=== PATIENT | male | born 1995 ===

== ENCOUNTER 2017-10-13 06:10 | Inpatient (IN) | payer OTHER ==
[2017-10-13] MEDS ORDERED: Iohexol 240 (50 ml) PO ONE (06:33)
[2017-10-13] MEDS ORDERED: Sodium Chloride 0.9% 1,000 ML IV STA (06:33)
--- NOTE | 2017-10-13 06:36 | ED PDOC ---
HPI: Abdomen Time Seen by Provider: 10/13/17 06:15 Chief Complaint (Nursing): Abdominal Pain Chief Complaint (Provider): Abdominal Pain History Per: Patient History/Exam Limitations: no limitations Onset/Duration Of Symptoms: Hrs (4.5) Additional Complaint(s): 22 y/o male with no past medical history presents to the ED complaining of abdominal pain that woke him up 4.5 hours ago. Patient describes the pain as periumbilical with no associated fever, nausea, vomiting, or diarrhea. He states that he has had a poor appetite for the past 2 days. PMD: None Provided Past Medical History Reviewed: Historical Data, Nursing Documentation, Vital Signs Vital Signs: Last Vital Signs Temp 98.7 F 10/14/17 08:02 Pulse 62 10/14/17 08:02 Resp 20 10/14/17 08:02 BP 118/72 10/14/17 08:02 Pulse Ox 98 10/16/17 04:21 - Medical History PMH: No Chronic Diseases - Surgical History Surgical History: No Surg Hx - Family History Family History: States: No Known Family Hx - Social History Current smoker - smoking cessation education provided: No Ex-Smoker (has not smoked in the last 12 months): No Alcohol: None Drugs: Cannabis (recently stopped) - Home Medications Home Medications: Ambulatory Orders Medication Instructions Recorded Ciprofloxacin [Cipro] 500 mg PO BID #14 tab 10/14/17 metroNIDAZOLE [Flagyl] 500 mg PO TID #21 tab 10/14/17 - Allergies Allergies/Adverse Reactions: Allergies Allergy/AdvReac Type Severity Reaction Status Date / Time No Known Allergies Allergy Verified 10/13/17 06:15 Review of Systems ROS Statement: Except As Marked, All Systems Reviewed And Found Negative Constitutional: Negative for: Fever Gastrointestinal: Positive for: Abdominal Pain (periumbilical). Negative for: Nausea, Vomiting, Diarrhea Physical Exam - Reviewed Nursing Documentation Reviewed: Yes Vital Signs Reviewed: Yes - Physical Exam Appears: Positive for: Non-toxic, No Acute Distress Head Exam: Positive for: ATRAUMATIC, NORMAL INSPECTION, NORMOCEPHALIC Skin: Positive for: Normal Color, Warm, Dry Eye Exam: Positive for: Normal appearance, EOMI, PERRL. Negative for: Nystagmus ENT: Positive for: Normal ENT Inspection Neck: Positive for: Normal, Painless ROM, Supple Cardiovascular/Chest: Positive for: Regular Rate, Rhythm. Negative for: Murmur Respiratory: Positive for: Normal Breath Sounds. Negative for: Respiratory Distress Gastrointestinal/Abdominal: Positive for: Bowel Sounds, Soft, Tenderness ( periumbilical and Right lower quadrant). Negative for: Guarding, Rebound Back: Positive for: Normal Inspection Extremity: Positive for: Normal ROM. Negative for: Pedal Edema, Deformity Neurologic/Psych: Positive for: Alert, Oriented. Negative for: Motor/Sensory Deficits - Laboratory Results Result Diagrams: 10/14/17 09:15 10/13/17 07:53 - ECG O2 Sat by Pulse Oximetry: 98 (RA) Pulse Ox Interpretation: Normal Medical Decision Making Medical Decision Making: Time: 6:16 Initial Impression: 22 y/o male with periumbilical and right lower quadrant pain Initial Plan: --CMP --Lipase --ED Urine dipstick --CBC --Urinalysis --CT Abdomen Pelvis Time: 7:00 --Patient signed out by me to Dr. Marybeth Nevarez MD pending CT. Scribe Attestation: Documented by Stephen Deal, acting as a scribe for Kali Posada MD Provider Scribe Attestation: All medical record entries made by the Scribe were at my direction and personally dictated by me. I have reviewed the chart and agree that the record accurately reflects my personal performance of the history, physical exam, medical decision making, and the department course for this patient. I have also personally directed, reviewed, and agree with the discharge instructions and disposition. Disposition - Clinical Impression Clinical Impression: Abdominal pain - Patient ED Disposition Is Patient to be Admitted: Transfer of Care - Disposition Disposition: Transfer of Care Disposition Time: 07:00 Condition: STABLE Patient Signed Over To: Marybeth Nevarez
[2017-10-13] MEDS ORDERED: Iohexol 240 (50 ml) ONE ×2 (06:41→06:59)
[2017-10-13 06:44] LABS: RBC URINE 3 /hpf (0-3); URINE BACTERIA RARE (<OCC); URINE BILIRUBIN NEGATIVE (NEGATIVE); URINE COLOR YELLOW (YELLOW); URINE GLUCOSE (UA) NEG (Normal); URINE KETONE NEGATIVE (NEGATIVE); URINE LEUKOCYTE ESTERASE NEG Leu/uL (Negative); URINE PROTEIN NEGATIVE (NEGATIVE); URINE UROBILINOGEN 0.2-1.0 mg/dL (0.2-1.0); WBC URINE 1 /hpf (0-5)
[2017-10-13 06:45] LABS: URINE BLOOD TRACE (NEGATIVE)
--- NOTE | 2017-10-13 07:09 | ED PDOC ---
- Laboratory Results Result Diagrams: 10/13/17 07:53 10/13/17 07:53 - ECG O2 Sat by Pulse Oximetry: 98 (RA) Pulse Ox Interpretation: Normal Medical Decision Making Medical Decision Making: Receiving sign out: Patient signed out to me by Dr. Posada at [address], labs, re-evaluation. Scribe Attestation: Documented by Veda Velazquez acting as a scribe for Marybeth Nevarez MD. Provider Attestation: All medical record entries made by the Scribe were at my direction and personally dictated by me. I have reviewed the chart and agree that the record accurately reflects my personal performance of the history, physical exam, medical decision making, and the department course for this patient. I have also personally directed, reviewed, and agree with the discharge instructions and disposition. Disposition - Disposition Forms: [employer] ([place]ayan) Progress Note - Review of Symptoms Events since last encounter: Time: 958 CT Abdomen indicated acute appendicits. Time: [address] Liao, surgeon photographic reproduction technician. Time: 1100 Case discussed with surgical technician, patient to be admitted under Dr. Liao's service.
[2017-10-13 07:58] LABS: BASO # 0.1 K/uL (0.0-0.2); BASO % 0.3 % (0.0-2.0); EOS # 0.1 K/uL (0.0-0.7); EOS % 0.5 % (0.0-4.0); HEMATOCRIT 45.1 % (35.0-51.0); LYMPH # 2.3 K/uL (1.0-4.3); LYMPH % 11.5 % (20.0-40.0); MEAN CORPUSCULAR HGB CONC 33.3 g/dL (33.0-37.0); MEAN PLATELET VOLUME 9.3 fl (7.2-11.7); MONO # 1.4 K/uL (0.0-0.8); MONO % 7.3 % (0.0-10.0); NEUT # 15.9 K/uL (1.8-7.0); NEUT % 80.4 % (50.0-75.0); NRBC % 0.1 % (0.0-0.0); RED CELL DISTRIBUTION WIDTH 13.5 % (11.5-14.5); WHITE BLOOD COUNT 19.8 K/uL (4.8-10.8)
[2017-10-13 08:37] LABS: ALKALINE PHOSPHATASE 115 U/L (38-126); ALT/SGPT 53 U/L (21-72); AST/SGOT 34 U/L (17-59); BILIRUBIN,TOTAL 0.8 mg/dl (0.2-1.3); BLOOD UREA NITROGEN 12 mg/dl (9-20); CALCIUM 10.1 mg/dL (8.4-10.2); CARBON DIOXIDE 27 mmol/L (22-30); CHLORIDE 102 mmol/L (98-107); GFR AFRICAN-AMERICAN > 60; GLUCOSE,RANDOM 100 mg/dL (75-110); LIPASE 67 U/L (23-300); POTASSIUM 3.8 MMOL/L (3.6-5.0); SODIUM 144 mmol/l (132-148); TOTAL PROTEIN 9.1 G/DL (6.3-8.2)
[2017-10-13] MEDS ORDERED: Sodium Chloride 0.9% 50 ML IV ONE (08:48)
[2017-10-13] MEDS ORDERED: Iohexol 300 100 ML IJ ONE (08:48)
[2017-10-13 08:52] LABS: ALB/GLOB RATIO 1.4 (1.0-2.1)
--- NOTE | 2017-10-13 10:10 | CT ---
PROCEDURE: CT Abdomen and Pelvis with contrast HISTORY: abd pain COMPARISON: None. TECHNIQUE: Contrast dose: 95 mL Omnipaque 300 Radiation dose: Total exam DLP = 219.17 mGy-cm. This CT exam was performed using one or more of the following dose reduction techniques: Automated exposure control, adjustment of the mA and/or kV according to patient size, and/or use of iterative reconstruction technique. FINDINGS: LOWER THORAX: Unremarkable. LIVER: Unremarkable. No gross lesion or ductal dilatation. GALLBLADDER AND BILE DUCTS: Unremarkable. PANCREAS: Unremarkable. No gross lesion or ductal dilatation. SPLEEN: Unremarkable. ADRENALS: Unremarkable. No mass. KIDNEYS AND URETERS: Unremarkable. No hydronephrosis. No solid mass. VASCULATURE: Unremarkable. No aortic aneurysm. BOWEL: Unremarkable. No obstruction. No gross mural thickening. APPENDIX: Distended appendix within the lumen up to 7 mm. Suspicious for appendicitis. No periappendiceal abscess. There is mass-effect at the cecal apex consistent with appendicitis. PERITONEUM: Unremarkable. No free fluid. No free air. LYMPH NODES: Unremarkable. No enlarged lymph nodes. BLADDER: Unremarkable. REPRODUCTIVE: Unremarkable. Air. No other significant abnormality is identified. BONES: No acute fracture. OTHER FINDINGS: None. IMPRESSION: Findings concerning for acute appendicitis. No evidence of periappendiceal abscess. No free air. These findings were discussed with Dr. Reid by telephone at 10 a.m. on 10/13/2017.
[2017-10-13] MEDS ORDERED: Piperacill/Tazo 4.5gm in Dex 4.5 GM/100 ML BAG IVPB STA (10:12)
[2017-10-13] MEDS ORDERED: Morphine 4 MG/ML VIAL IVP PRN ×2 (11:59→18:07)
[2017-10-13] MEDS ORDERED: Sodium Chloride 0.9% 1,000 ML IV SCH (12:00)
--- NOTE | 2017-10-13 12:27 | CP.PCM.HP ---
<Corinna Faustin - Last Filed: 10/13/17 12:21> History of Present Illness - History of Present Illness History of Present Illness: General Surgery Dr. Diaz 22 y/o M presents to the ED c/o RLQ abd pain. Pt states pain began overnight coby-umbilical and has since localized to the RLQ. Pt admits to single episode of NBNB vomiting. Pt reports normal bowel functions. Pt denies fever, chills, nausea, diarrhea, constipation. PMHx: denies Meds reviewed in chart NKDA PSHx: denies SHx: marijuana use; denies tobacco, EtOH use FHx: non-contributory Present on Admission - Present on Admission Any Indicators Present on Admission: No Review of Systems - Review of Systems All systems: reviewed and no additional remarkable complaints except (see HPI) Past Patient History - Past Medical History & Family History Past Medical History?: No - Past Social History Smoking Status: Never Smoked - CARDIAC Hx Cardiac Disorders: No - PSYCHIATRIC Hx Substance Use: Yes - SURGICAL HISTORY Hx Surgeries: No - ANESTHESIA Hx Anesthesia: No Meds Allergies/Adverse Reactions: Allergies Allergy/AdvReac Type Severity Reaction Status Date / Time No Known Allergies Allergy Verified 10/13/17 06:15 Physical Exam - Constitutional Appears: Non-toxic, No Acute Distress - Head Exam Head Exam: NORMAL INSPECTION - Eye Exam Eye Exam: Normal appearance - ENT Exam ENT Exam: Mucous Membranes Moist - Respiratory Exam Respiratory Exam: NORMAL BREATHING PATTERN. absent: Accessory Muscle Use, Respiratory Distress - Cardiovascular Exam Cardiovascular Exam: absent: Bradycardia, Tachycardia - GI/Abdominal Exam GI & Abdominal Exam: Soft, Tenderness (RLQ TTP). absent: Distended - Expanded GI/Abdominal Exam Expanded Expanded GI & Abdominal Exam: McBurney's Point Tenderness. absent: Rovsing's Sign - Extremities Exam Extremities exam: Positive for: normal inspection - Neurological Exam Neurological exam: Alert, Oriented x3 - Psychiatric Exam Psychiatric exam: Normal Affect, Normal Mood - Skin Skin Exam: Dry, Intact, Normal Color, Warm Results - Vital Signs Recent Vital Signs: Last Vital Signs Temp 98 F 10/13/17 06:12 Pulse 56 L 10/13/17 11:02 Resp 18 10/13/17 11:02 BP 116/62 10/13/17 11:02 Pulse Ox 98 10/13/17 11:26 - Labs Result Diagrams: 10/13/17 07:53 10/13/17 07:53 Labs: Laboratory Results - last 24 hr 10/13/17 10/13/17 10/13/17 06:35 07:53 07:53 WBC 19.8 H RBC 5.01 Hgb 15.0 Hct 45.1 MCV 90.0 MCH 30.0 MCHC 33.3 RDW 13.5 Plt Count 241 MPV 9.3 Neut % (Auto) 80.4 H Lymph % (Auto) 11.5 L [place] % (Auto) 7.3 Eos % (Auto) 0.5 Baso % (Auto) 0.3 Neut # 15.9 H Lymph # 2.3 [place] # 1.4 H Eos # 0.1 Baso # 0.1 Sodium 144 Potassium 3.8 Chloride 102 Carbon Dioxide 27 Anion Gap 19 BUN 12 Creatinine 0.9 Est GFR ( Amer) > 60 Est GFR (Non-Af Amer) > 60 Random Glucose 100 Calcium 10.1 Total Bilirubin 0.8 AST 34 ALT 53 Alkaline Phosphatase 115 Total Protein 9.1 H Albumin 5.3 H Globulin 3.7 Albumin/Globulin Ratio 1.4 Lipase 67 Urine Color Yellow Urine Clarity Slighty-cloudy Urine pH 5.0 Ur Specific [place] 1.028 Urine Protein Negative Urine Glucose (UA) Neg Urine Ketones Negative Urine Blood Trace H Urine Nitrate Negative Urine Bilirubin Negative Urine Urobilinogen 0.2-1.0 Ur Leukocyte Esterase Neg Urine RBC (Auto) 3 Urine Microscopic WBC 1 Urine Bacteria Rare Assessment & Plan - Assessment and Plan (Free Text) Assessment: 22 y/o M w/ acute appendicitis - NPO - NS@125 - Zosyn Q6 - Morphine 4mg PRN pain - Zofran Q4 PRN nausea - OR today for lap appy - consent obtained at bedside. discussed risks of surgery. Pt was given the opportunity to ask questions which were answered fully. Pt discussed w/ Dr. Joe Faustin Do PGY2 <Arcenio Diaz - Last Filed: 10/16/17 21:03> Results - Vital Signs Recent Vital Signs: Last Vital Signs Temp 98.7 F 10/14/17 08:02 Pulse 62 10/14/17 08:02 Resp 20 10/14/17 08:02 BP 118/72 10/14/17 08:02 Pulse Ox 98 10/16/17 04:22 - Labs Result Diagrams: 10/14/17 09:15 10/13/17 07:53 Attending/Attestation - Attestation I have personally seen and examined this patient.: Yes I have fully participated in the care of the patient.: Yes I have reviewed all pertinent clinical information: Yes Notes (Text): Pt was seen and examined at bedside Agree with above note and assessment Pt with Acute Appendicitis with leukocytosis RLQ tendernesss Labs and Radiology reviewed Ass: Acute Appendicitis Plan : OR for Lap Appendectomy possible Open Consent NPO, IVF IV antibiotics Plan d.w pt in detail Risk and benefit explained in detail.
[2017-10-13] MEDS: Sodium Chloride 0.9% 1,000 ML IV SCH ×2 (12:45→23:12)
[2017-10-13] MEDS ORDERED: Propofol 10 mg/ml Inj (20 ML) ONE (15:56)
[2017-10-13] MEDS ORDERED: Midazolam 2 MG/2 ML VIAL ONE (15:57)
[2017-10-13] MEDS ORDERED: Succinylcholine 200 mg/10 ml Inj IV ONE (15:57)
[2017-10-13] MEDS ORDERED: Neostigmine Methylsulfate 2 MG/2 ML ML IV ONE (15:57)
[2017-10-13] MEDS ORDERED: Lidocaine 1% 5ml Abboject IV ONE (15:57)
[2017-10-13] MEDS ORDERED: Rocuronium 10 mg/ml (5 ml) ONE (15:57)
[2017-10-13] MEDS ORDERED: Bupivacaine 0.5% Inj(30mL) ONE (15:58)
[2017-10-13] MEDS ORDERED: ceFAZolin IV 1 gm in Dextrose 0 GM/0 ML BAG IVPB ONE (15:58)
[2017-10-13] MEDS ORDERED: Lidocaine 1% Inj (20ml) ONE (15:58)
[2017-10-13] MEDS ORDERED: Lactated Ringer's 1,000 ML IV ONE ×2 (16:36→18:00)
[2017-10-13] MEDS ORDERED: Naloxone 0.4 mg/ml Inj (Adult) ONE (17:59)
--- NOTE | 2017-10-13 18:04 | PCM.SURG1 ---
Surgeon's Initial Post Op Note - Surgeon's Notes Surgeon: Dr. Diaz Sofa Back Upholsterer: Dr. Faustin PGY2 Type of Anesthesia: General Endo Pre-Operative Diagnosis: acute appendicitis Operative Findings: see dictation Post-Operative Diagnosis: same Operation Performed: laparoscopic appendectomy; drainage of pelvic fluid Specimen/Specimens Removed: appendix Estimated Blood Loss: EBL {In ML}: 5 Drains Used: Jasson Post-Op Condition: Good Date of Surgery/Procedure: 10/13/17 Time of Surgery/Procedure: 16:35
[2017-10-13] MEDS ORDERED: HYDROmorphone 0.5 mg/0.5 ml ISec ONE ×2 (18:13→19:16)
[2017-10-13] MEDS ORDERED: Lactated Ringer's 1,000 ML IV SCH (19:00)
[2017-10-14] MEDS: Piperacillin/Tazobact 3.375 GM in Sodium Chloride 0.9% 100 ML IVPB SCH ×3 (00:09→12:52)
[2017-10-14] MEDS: Sodium Chloride 0.9% 1,000 ML IV SCH ×3 (05:47→12:54)
[2017-10-14 08:02] VITALS: BP 118/72; PULSE 62; RESP 20; TEMP 98.7; O2SAT 98
[2017-10-14] MEDS ORDERED: Pneumococcal 23-Valent Vaccine IM ONE (09:00)
[2017-10-14] MEDS ORDERED: Influenza Vaccine 18yr & older 0.5 ML/45 MCG SYR IM ONE (09:00)
--- NOTE | 2017-10-14 09:10 | CP.PCM.PN ---
<RaminCorinna - Last Filed: 10/14/17 09:07> Subjective - Date & Time of Evaluation Date of Evaluation: 10/14/17 Time of Evaluation: 07:00 - Subjective Subjective: General Surgery Dr. Diaz Pt S&E @bedside. NAEO. pt underwent laparoscopic appendectomy yesterday. Pt tolerated the procedure well w/ no complications. Pt has no complaints this AM. Pt denies F/C, N/V, D/C. tolerating diet. Objective - Vital Signs/Intake and Output Vital Signs (last 24 hours): Temp Pulse Resp BP Pulse Ox 98.7 F 62 20 118/72 98 10/14/17 08:02 10/14/17 08:02 10/14/17 08:02 10/14/17 08:02 10/14/17 08:02 Intake and Output: 10/14/17 10/14/17 06:59 18:59 Output Total 25 Balance -25 - Medications Medications: Current Medications Hydromorphone HCl (Dilaudid) 0.5 mg IVP Q15MIN PRN PRN Reason: Pain, moderate (4-7) Last Admin: 10/13/17 19:15 Dose: 0.5 mg Piperacillin Sod/Tazobactam (Sod 3.375 gm/ Sodium Chloride) 100 mls @ 100 mls/ hr IVPB 0600,1200,1800,0000 [facility] PRN Reason: Protocol Last Admin: 10/14/17 05:51 Dose: 100 mls/hr Sodium Chloride (Sodium Chloride 0.9%) 1,000 mls @ 125 mls/hr IV .Q8H [facility] Last Admin: 10/14/17 05:51 Dose: Not Given Lactated Ringer's (Lactated Ringer's) 1,000 mls @ 100 mls/hr IV .Q10H [facility] Last Admin: 10/14/17 05:22 Dose: Not Given Morphine Sulfate (Morphine) 4 mg IVP Q4 PRN PRN Reason: Pain, severe (8-10) Last Admin: 10/14/17 05:46 Dose: 4 mg Ondansetron HCl (Zofran Inj) 4 mg IVP Q4 PRN PRN Reason: Nausea/Vomiting Oxycodone/Acetaminophen (Percocet 5/325 Mg Tab) 1 tab PO Q4 PRN PRN Reason: Pain, moderate (4-7) Stop: 10/16/17 18:07 - Labs Labs: 10/13/17 07:53 10/13/17 07:53 - Constitutional Appears: Non-toxic, No Acute Distress - Head Exam Head Exam: NORMAL INSPECTION - Eye Exam Eye Exam: Normal appearance - ENT Exam ENT Exam: Mucous Membranes Moist - Respiratory Exam Respiratory Exam: NORMAL BREATHING PATTERN. absent: Accessory Muscle Use, Respiratory Distress - Cardiovascular Exam Cardiovascular Exam: absent: Bradycardia, Tachycardia - GI/Abdominal Exam GI & Abdominal Exam: Soft, Tenderness (appropriate coby-incisional TTP ). absent: Distended, Guarding, Rebound Additional comments: dressings c/d/i drain w/ scant serosanguinous output - Extremities Exam Extremities Exam: Normal Inspection - Neurological Exam Neurological Exam: Alert, Awake, Oriented x3 - Psychiatric Exam Psychiatric exam: Normal Affect, Normal Mood - Skin Skin Exam: Dry, Intact, Normal Color, Warm Assessment and Plan - Assessment and Plan (Free Text) Assessment: 22 y/o M POD#1 s/p Lap Appy - monitor drain outputs - trend WBC -> pt cleared for discharge once WBC normalizes - cont IV Abx - ADAT - cont pain management - encourage OOB to chair/Amb/IS use Pt discussed w/ Dr. Joe Faustin DO PGY2 <Arcenio Diaz - Last Filed: 10/17/17 23:21> Objective - Vital Signs/Intake and Output Vital Signs (last 24 hours): Temp Pulse Resp BP Pulse Ox 98.7 F 62 20 118/72 98 10/14/17 08:02 10/14/17 08:02 10/14/17 08:02 10/14/17 08:02 10/16/17 04:22 - Labs Labs: 10/14/17 09:15 10/13/17 07:53 Attending/Attestation - Attestation I have personally seen and examined this patient.: Yes I have fully participated in the care of the patient.: Yes I have reviewed all pertinent clinical information, including history, physical exam and plan: Yes Notes (Text): Pt was seen and examined at bedside Agree with above note and assessment
[2017-10-14] MEDS: Oxycodone/Acetaminophen 5/325 mg Tab PO PRN ×2 (09:11→12:58)
[2017-10-14 09:26] LABS: HEMATOCRIT 39.4 % (35.0-51.0); MEAN CELL VOLUME 89.6 fl (80.0-94.0); MEAN CORPUSCULAR HGB CONC 33.5 g/dL (33.0-37.0); RED CELL DISTRIBUTION WIDTH 13.8 % (11.5-14.5); WHITE BLOOD COUNT 11.8 K/uL (4.8-10.8)
--- NOTE | 2017-10-14 14:27 | CP.PCM.DIS ---
Provider - Provider Date of Admission: 10/13/17 11:59 Attending physician: Arcenio Diaz MD Time Spent in preparation of Discharge (in minutes): 5 Hospital Course - Lab Results Lab Results: Micro Results 10/13/17 13:26 Blood Blood Culture - Preliminary NO GROWTH AFTER 24 HOURS 10/13/17 Unknown Blood Blood Culture - Preliminary NO GROWTH AFTER 24 HOURS Most Recent Lab Values WBC 11.8 K/uL (4.8-10.8) H 10/14/17 09:15 RBC 4.40 Mil/uL (4.40-5.90) 10/14/17 09:15 Hgb 13.2 g/dL (12.0-18.0) 10/14/17 09:15 Hct 39.4 % (35.0-51.0) 10/14/17 09:15 MCV 89.6 fl (80.0-94.0) 10/14/17 09:15 MCH 30.0 pg (27.0-31.0) 10/14/17 09:15 MCHC 33.5 g/dL (33.0-37.0) 10/14/17 09:15 RDW 13.8 % (11.5-14.5) 10/14/17 09:15 Plt Count 217 K/uL (130-400) 10/14/17 09:15 MPV 9.3 fl (7.2-11.7) 10/13/17 07:53 Neut % (Auto) 80.4 % (50.0-75.0) H 10/13/17 07:53 Lymph % (Auto) 11.5 % (20.0-40.0) L 10/13/17 07:53 [place] % (Auto) 7.3 % (0.0-10.0) 10/13/17 07:53 Eos % (Auto) 0.5 % (0.0-4.0) 10/13/17 07:53 Baso % (Auto) 0.3 % (0.0-2.0) 10/13/17 07:53 Neut # 15.9 K/uL (1.8-7.0) H 10/13/17 07:53 Lymph # 2.3 K/uL (1.0-4.3) 10/13/17 07:53 [place] # 1.4 K/uL (0.0-0.8) H 10/13/17 07:53 Eos # 0.1 K/uL (0.0-0.7) 10/13/17 07:53 Baso # 0.1 K/uL (0.0-0.2) 10/13/17 07:53 Sodium 144 mmol/l (132-148) 10/13/17 07:53 Potassium 3.8 MMOL/L (3.6-5.0) 10/13/17 07:53 Chloride 102 mmol/L (98-107) 10/13/17 07:53 Carbon Dioxide 27 mmol/L (22-30) 10/13/17 07:53 Anion Gap 19 (10-20) 10/13/17 07:53 BUN 12 mg/dl (9-20) 10/13/17 07:53 Creatinine 0.9 mg/dl (0.8-1.5) 10/13/17 07:53 Est GFR ( Amer) > 60 10/13/17 07:53 Est GFR (Non-Af Amer) > 60 10/13/17 07:53 Random Glucose 100 mg/dL (75-110) 10/13/17 07:53 Calcium 10.1 mg/dL (8.4-10.2) 10/13/17 07:53 Total Bilirubin 0.8 mg/dl (0.2-1.3) 10/13/17 07:53 AST 34 U/L (17-59) 10/13/17 07:53 ALT 53 U/L (21-72) 10/13/17 07:53 Alkaline Phosphatase 115 U/L (38-126) 10/13/17 07:53 Total Protein 9.1 G/DL (6.3-8.2) H 10/13/17 07:53 Albumin 5.3 g/dL (3.5-5.0) H 10/13/17 07:53 Globulin 3.7 gm/dL (2.2-3.9) 10/13/17 07:53 Albumin/Globulin Ratio 1.4 (1.0-2.1) 10/13/17 07:53 Lipase 67 U/L (23-300) 10/13/17 07:53 Urine Color Yellow (YELLOW) 10/13/17 06:35 Urine Clarity Slighty-cloudy (Clear) 10/13/17 06:35 Urine pH 5.0 (5.0-8.0) 10/13/17 06:35 Ur Specific [place] 1.028 (1.003-1.030) 10/13/17 06:35 Urine Protein Negative mg/dL (NEGATIVE) 10/13/17 06:35 Urine Glucose (UA) Neg mg/dL (Normal) 10/13/17 06:35 Urine Ketones Negative mg/dL (NEGATIVE) 10/13/17 06:35 Urine Blood Trace (NEGATIVE) H 10/13/17 06:35 Urine Nitrate Negative (NEGATIVE) 10/13/17 06:35 Urine Bilirubin Negative (NEGATIVE) 10/13/17 06:35 Urine Urobilinogen 0.2-1.0 mg/dL (0.2-1.0) 10/13/17 06:35 Ur Leukocyte Esterase Neg [place]/uL (Negative) 10/13/17 06:35 Urine RBC (Auto) 3 /hpf (0-3) 10/13/17 06:35 Urine Microscopic WBC 1 /hpf (0-5) 10/13/17 06:35 Urine Bacteria Rare (<OCC) 10/13/17 06:35 - Hospital Course Hospital Course: 22M presented with 24 hours of RLQ abdominal pain. Found to have appendicitis on CT. Taken to OR for laparoscopic appendectomy, found to have purulent appendicitis. Tolerated sx well. Kept overnight for abx and pain management. D/C today with rx for 1 week of abx and pain meds. F/U in clinic in 1 week Discharge Exam - Head Exam Head Exam: NORMAL INSPECTION Discharge Plan - Discharge Medications Prescriptions: Ciprofloxacin [Cipro] 500 mg PO BID #14 tab metroNIDAZOLE [Flagyl] 500 mg PO TID #21 tab - Follow Up Plan Condition: STABLE Disposition: HOME/ ROUTINE Instructions: Laparoscopic Appendectomy (DC), Care For Your Absorbable Stitches (DC) Additional Instructions: follow up w/ Dr. Diaz w/in 1 week take all medications as prescribed no heavy lifting for 1-2 weeks pt may shower tomorrow do not soak incisions; no pools, tubs, baths no dietary restrictions return to the ED if fever >100.4, pain, redness, drainage from incisions
--- NOTE | 2017-10-16 23:32 | OP ---
PROCEDURE DATE: 10/13/2017 PREOPERATIVE DIAGNOSES: 1. Acute appendicitis. 2. Leukocytosis. POSTOPERATIVE DIAGNOSES: 1. Acute appendicitis. 2. Pelvic and periappendicular abscess. 3. Leukocytosis. PROCEDURE DONE: 1. Laparoscopic appendectomy. 2. Laparoscopic drainage pelvic abscess and periappendicular abscess. SURGEON: The procedure was done by Arcenio finch MD. GO CART MECHANIC: Corinna Faustin DO, PGY 2 resident. TYPE OF ANESTHESIA: General endotracheal tube anesthesia. INTRAOPERATIVE FINDINGS: The patient had changes of acute appendicitis with pelvic abscess and periappendicular abscess. ESTIMATED BLOOD LOSS: Around 10 mL. DRAINS: The 19 [place] Jasson drain was placed. PATHOLOGY: Appendix was sent for the pathology. COMPLICATIONS: None. DESCRIPTION OF PROCEDURE: On intraoperative steps, this 22-year-old male was diagnosed with acute appendicitis with a severe leucocytosis and the patient was consented for laparoscopic appendectomy, possible open, brought to the OR, placed supine on operating table. After induction of the anesthesia, abdomen was prepped and draped in the usual sterile fashion. The supraumbilical transverse incision was made after incising skin and subcutaneous tissue. The fascia was incised in the line of incision. Willem port was placed. Pneumo was created. The 12-mm port was placed in left lower quadrant and another 5 mm port was placed in suprapubic region. The grasper and dissector were introduced and the appendix was identified. Appendix appeared to be extremely thick and edematous and there was a periappendicular abscess as well as pelvic abscess. First, pelvic abscess was suction irrigated and drained and the periappendicular abscess was also drained. Now, the mesoappendix was resected with Harmonic scalpel, base of the appendix was resected with the SIERRA and after proper hemostasis, a suction irrigation of the pelvic, periappendicular and perihepatic area was done. After proper suctioning of the fluid, the appendix was taken in an EndoCatch bag, taken out through the umbilical port side and sent available for the pathology. There was a proper hemostasis in each and every part of the procedure and all the port was taken out under vision. Pneumo was deflated. The 19 [place] Jasson drain was placed before taking the port out and the drain was secured to the skin. The 12 mm port side as well as the umbilical port site were closed in 2 layers, the fascia with 0 Vicryl interrupted sutures, skin with the 4-0 Monocryl and dry sterile dressing was applied. The patient tolerated the procedure well. Count of the instrument was correct. There was no apparent complication. The patient was extubated in the OR, sent to the Postanesthesia Care Unit in stable condition. Arcenio Diaz MD
== END 2017-10-14 16:15 | disposition home or self-care (01) | DRG 883 ==
LOC: H.ER 06:10 → H.ERHOLD 11:59 → H.MEDSURG1 20:00
PROVIDERS: ADMIT Surgery Surgical Critical Care; ATTEND Surgery Surgical Critical Care
PROC: 0W9J4ZZ Drainage of Pelvic Cavity, Percutaneous Endoscopic Approach (ICD-10-PCS; 2017-10-13)
PROC: 0W9G4ZZ Drainage of Peritoneal Cavity, Percutaneous Endoscopic Approach (ICD-10-PCS; 2017-10-13)
PROC: 0DTJ4ZZ Resection of Appendix, Percutaneous Endoscopic Approach (ICD-10-PCS; principal; 2017-10-13 15:00)
PROC: 3E0234Z Introduction of Serum, Toxoid and Vaccine into Muscle, Percutaneous Approach (ICD-10-PCS; 2017-10-14)
DX: K35.3 Acute appendicitis with localized peritonitis (principal); Z23 Encounter for immunization

== ENCOUNTER 2018-05-22 12:22 | Emergency (ER) | payer OTHER, SELFPAY ==
[2018-05-22 12:31] VITALS: O2SAT 100
[2018-05-22] MEDS ORDERED: Sodium Chloride 0.9% 1,000 ML IV STA (13:35)
--- NOTE | 2018-05-22 13:50 | ED PDOC ---
HPI: Abdomen Chief Complaint (Provider): abdomial pain, vomiing History Per: Patient History/Exam Limitations: no limitations Onset/Duration Of Symptoms: Days (3 days) Outside of [place] travel?: No Current Symptoms Are (Timing): Intermittent Episodes Context: Food Severity: Mild Pain Scale Rating Of: 5 Location Of Pain/Discomfort: Epigastric, LLQ Quality Of Discomfort: Cramping, "Pain" Associated Symptoms: Nausea, Vomiting, Diarrhea. denies: Loss Of Appetite Exacerbating Factors: Food Alleviating Factors: Other (not eaing) Last Bowel Movement: Today Additional History Per: Patient <Simba Goodrich - Last Filed: 05/22/18 13:47> <Genesis Viveros - Last Filed: 05/22/18 14:56> Time Seen by Provider: 05/22/18 12:55 Chief Complaint (Nursing): GI Problem Additional Complaint(s): 23 yo male with no PMH present today to ER due to abdomianl pain and vomiting that started 3 days ago. Pt state that the day before symptoms started he ate an old pizza and he think its the cause of his symptoms. Pt describe the pain as cramping, 5 out of 10 in severity, intermittent, and exacerbated by food, but denies radiation. Pt state that he had 1-2 vomit a day mostly after he ate, and 10-20 BM a day last BM was today morning. Pt state he had fever with cough last week but it have resolved. HE denies any recent travel, or have contact with sick person. Pt denies current fever, chills, Headache, change in vision, SOB, chest pain, dysuria, polyuria, or any other symptoms PMH none PSH : appendectomy PF: none social : Former marihuana smoker, used to drink, never smoked cigarette. ( Simba Goodrich) Supervising Attending Note - Supervising Attending Note The Documented history was done by the: Physician Biscuit Factory Worker The documented physical exam was done by the: Physician Biscuit Factory Worker The documented procedures were done by the: Physician Biscuit Factory Worker - Attestation: I have personally seen and examined this patient.: Yes I have fully participated in the care of the patient.: Yes I have reviewed all pertinent clinical information: Yes <Genesis Viveros - Last Filed: 05/22/18 14:56> Past Medical History Reviewed: Historical Data, Nursing Documentation, Vital Signs - Medical History PMH: No Chronic Diseases Denies: Chronic Kidney Disease - Surgical History Surgical History: Appendectomy - Family History Family History: States: Unknown Family Hx - Immunization History Hx Tetanus Toxoid Vaccination: No Hx Influenza Vaccination: No Hx Pneumococcal Vaccination: No <Simba Goodrich - Last Filed: 05/22/18 13:47> <Genesis Viveros - Last Filed: 05/22/18 14:56> Vital Signs: Last Vital Signs Temp 97.4 F L 05/22/18 12:29 Pulse 89 05/22/18 12:29 Resp 18 05/22/18 12:29 BP 101/68 05/22/18 12:29 Pulse Ox 100 05/22/18 14:02 - Home Medications Home Medications: Ambulatory Orders Medication Instructions Recorded Ciprofloxacin [Cipro] 500 mg PO BID #14 tab 10/14/17 metroNIDAZOLE [Flagyl] 500 mg PO TID #21 tab 10/14/17 Oxycodone HCl/Acetaminophen 1 tab PO Q6 PRN 10/18/17 [Oxycodone-Acetaminophen 5-325] Bismuth Subsalicylate [Pepto 262 mg PO Q4H PRN #30 ctb 05/22/18 Bismol] Famotidine [Pepcid] 20 mg PO BID #60 tab 05/22/18 - Allergies Allergies/Adverse Reactions: Allergies Allergy/AdvReac Type Severity Reaction Status Date / Time No Known Allergies Allergy Verified 05/22/18 12:28 Review of Systems ROS Statement: Except As Marked, All Systems Reviewed And Found Negative ENT: Positive for: Other (lesion on the upper left lip) Cardiovascular: Negative for: Chest Pain, Palpitations, Light Headedness Respiratory: Positive for: Cough. Negative for: Shortness of Breath, SOB with Exertion, Wheezing Gastrointestinal: Positive for: Nausea, Vomiting, Abdominal Pain, Diarrhea, Other. Negative for: Constipation, Melena, Hematochezia Genitourinary Male: Negative for: Dysuria, Frequency, Rash Musculoskeletal: Negative for: Neck Pain, Shoulder Pain Neurological: Positive for: Dizziness (when he bend over ) <ShantaSimba Victoria - Last Filed: 05/22/18 13:47> Physical Exam - Reviewed Nursing Documentation Reviewed: Yes Vital Signs Reviewed: Yes - Physical Exam Appears: Positive for: Well, Non-toxic, No Acute Distress Head Exam: Positive for: ATRAUMATIC, NORMAL INSPECTION, NORMOCEPHALIC Skin: Positive for: Normal Color, Warm, Dry Eye Exam: Positive for: Normal appearance ENT: Positive for: Normal ENT Inspection Neck: Positive for: Normal Cardiovascular/Chest: Positive for: Regular Rate, Rhythm Respiratory: Positive for: Normal Breath Sounds. Negative for: Crackles, Rales , Rhonchi, Wheezing, Respiratory Distress Gastrointestinal/Abdominal: Positive for: Normal Exam, Bowel Sounds, Soft, Tenderness (LLQ). Negative for: Organomegaly, Mass, Distended, Guarding, Rebound Back: Positive for: Normal Inspection Extremity: Positive for: Normal ROM Lymphatic: Positive for: Normal Exam Neurologic/Psych: Positive for: Alert, filtration supervisor II-XII, Oriented, Mood/Affect <Simba Goodrich - Last Filed: 05/22/18 13:47> - ECG O2 Sat by Pulse Oximetry: 100 <Simba Goodrich - Last Filed: 05/22/18 13:47> - Laboratory Results Result Diagrams: 05/22/18 13:45 05/22/18 13:45 <Genesis Viveros - Last Filed: 05/22/18 14:56> Medical Decision Making <Simba Goodrich - Last Filed: 05/22/18 13:47> <Genesis Viveros - Last Filed: 05/22/18 14:56> Medical Decision Making: Time 1:30 Initial impression : pt present with abdominal pain and vomit most likely due to gastritis Plan CBC with differential BMP Urine dipstick IV NS fluid Pepcid 20mg IV (Simba Goodrich) Disposition <Simba Goodrich - Last Filed: 05/22/18 13:47> - Patient ED Disposition Is Patient to be Admitted: No Doctor Will See Patient In The: Office Counseled Patient/Family Regarding: Diagnosis, Need For Followup, Rx Given - Disposition Disposition: Routine/Home Disposition Time: 14:54 - POA Present On Arrival: None <Genesis Viveros - Last Filed: 05/22/18 14:56> - Clinical Impression Clinical Impression: Gastritis, Diarrhea - Disposition Referrals: [facility] [Outside] Nephrology [facility] [Outside] Condition: IMPROVED Prescriptions: Bismuth Subsalicylate [Pepto Bismol] 262 mg PO Q4H PRN #30 ctb PRN Reason: Diarrhea Famotidine [Pepcid] 20 mg PO BID #60 tab Instructions: Gastritis, Diarrhea in Adolescents and Adults Forms: [facility] (Telugu), [facility] ED School/Work Excuse Print Language: JAMAICAN
[2018-05-22 14:12] LABS: BASO % 0.4 % (0.0-2.0); EOS # 0.1 K/uL (0.0-0.7); EOS % 1.1 % (0.0-4.0); LYMPH % 12.2 % (20.0-40.0); MEAN CORPUSCULAR HEMOGLOBIN 29.8 pg (27.0-31.0); MEAN CORPUSCULAR HGB CONC 33.8 g/dL (33.0-37.0); MONO # 1.2 K/uL (0.0-0.8); MONO % 14.5 % (0.0-10.0); NEUT # 5.9 K/uL (1.8-7.0); NEUT % 71.8 % (50.0-75.0); RBC 4.69 Mil/uL (4.40-5.90); RED CELL DISTRIBUTION WIDTH 13.4 % (11.5-14.5); WHITE BLOOD COUNT 8.2 K/uL (4.8-10.8)
[2018-05-22 14:48] LABS: ALB/GLOB RATIO 1.4 (1.0-2.1); ALBUMIN 4.7 g/dL (3.5-5.0); ALT/SGPT 48 U/L (21-72); AST/SGOT 42 U/L (17-59); BLOOD UREA NITROGEN 14 mg/dl (9-20); CALCIUM 9.8 mg/dL (8.4-10.2); GFR AFRICAN-AMERICAN > 60; GFR NON-AFRICAN AMERICAN > 60
[2018-05-22 15:14] VITALS: BP 110/65; PULSE 69; RESP 16; TEMP 98.6
== END 2018-05-22 15:09 | disposition home or self-care (01) ==
LOC: H.ER 12:22
DX: K29.70 Gastritis, unspecified, without bleeding (principal)
CPT/HCPCS: 80053; 85025; 96361; 96374; 99285; J7030

== ENCOUNTER 2018-09-09 11:58 | Emergency (ER) | payer SELFPAY ==
--- NOTE | 2018-09-09 12:43 | ED PDOC ---
HPI: Abdomen Time Seen by Provider: 09/09/18 12:20 Chief Complaint (Nursing): Abdominal Pain Chief Complaint (Provider): abdominal pain History Per: Patient, Other (Patient's girlfriend at bedside is translating for patient in Welsh) Additional Complaint(s): 23 year old male presents with generalized abdominal pain for 1 year s/p having appendectomy in Sep. No fever, or chills, no nausea or diarrhea. Patient states he has vomited twice since the surgery but only after eating too much. He rates current pain as 6/10. PMD: none Past Medical History Vital Signs: Last Vital Signs Temp 97.4 F L 09/09/18 12:06 Pulse 68 09/09/18 12:06 Resp 16 09/09/18 12:06 BP 112/70 09/09/18 12:06 Pulse Ox 99 09/09/18 12:06 - Medical History PMH: Denies: Chronic Kidney Disease - Surgical History Surgical History: Appendectomy - Family History Family History: States: Unknown Family Hx - Immunization History Hx Tetanus Toxoid Vaccination: No Hx Influenza Vaccination: No Hx Pneumococcal Vaccination: No - Home Medications Home Medications: Ambulatory Orders Medication Instructions Recorded Ciprofloxacin [Cipro] 500 mg PO BID #14 tab 10/14/17 metroNIDAZOLE [Flagyl] 500 mg PO TID #21 tab 10/14/17 Oxycodone HCl/Acetaminophen 1 tab PO Q6 PRN 10/18/17 [Oxycodone-Acetaminophen 5-325] Bismuth Subsalicylate [Pepto 262 mg PO Q4H PRN #30 ctb 05/22/18 Bismol] Famotidine [Pepcid] 20 mg PO BID #60 tab 05/22/18 Dicyclomine [Bentyl] 10 mg PO QID PRN #20 cap 09/09/18 - Allergies Allergies/Adverse Reactions: Allergies Allergy/AdvReac Type Severity Reaction Status Date / Time No Known Allergies Allergy Verified 09/09/18 12:05 Review of Systems ROS Statement: Except As Marked, All Systems Reviewed And Found Negative Constitutional: Negative for: Fever, Chills Cardiovascular: Negative for: Chest Pain Respiratory: Negative for: Cough Gastrointestinal: Positive for: Abdominal Pain ( year). Negative for: Nausea, Vomiting, Diarrhea, Constipation, Melena, Hematochezia, Hematemesis, Rectal Pain Genitourinary Male: Negative for: Dysuria, Frequency, Incontinence, Hematuria, Penile Discharge, Scrotal Pain, Penile Pain Physical Exam - Reviewed Nursing Documentation Reviewed: Yes Vital Signs Reviewed: Yes - Physical Exam Appears: Positive for: Well, Non-toxic, No Acute Distress Skin: Positive for: Normal Color. Negative for: Rash Eye Exam: Positive for: Normal appearance Cardiovascular/Chest: Positive for: Regular Rate, Rhythm Respiratory: Positive for: Normal Breath Sounds. Negative for: Respiratory Distress Gastrointestinal/Abdominal: Positive for: Soft. Negative for: Tenderness, Mass, Distended, Guarding, Rebound, Hernia, Asicites Extremity: Positive for: Normal ROM Neurologic/Psych: Positive for: Alert, Oriented - Laboratory Results Result Diagrams: 09/09/18 13:20 09/09/18 13:20 Urine dip results: Negative for: Leukocyte Esterase, Blood, Nitrate, Ketones, Glucose, Bilirubin, Protein - ECG O2 Sat by Pulse Oximetry: 99 Pulse Ox Interpretation: Normal Medical Decision Making Medical Decision Makin23 y/o old male with abdominal pain Plan: PO motrin CBC CMP Lipase Urine dip Patient is aware of all diagnostic testing results, all questions answered. Rx bentyl given. Patient was referred to clinic for follow up. Disposition - Clinical Impression Clinical Impression: Abdominal discomfort - Patient ED Disposition Is Patient to be Admitted: No Counseled Patient/Family Regarding: Studies Performed, Diagnosis, Need For Followup, Rx Given - Disposition Referrals: [facility] [Outside] Disposition: Routine/Home Disposition Time: 14:10 Condition: STABLE Additional Instructions: Take rx meds as directed as needed for pain. Follow up with clinic. Prescriptions: Dicyclomine [Bentyl] 10 mg PO QID PRN #20 cap PRN Reason: Gi Distress Instructions: Stomach Ache and Stomach Upset Forms: [employer] (Welsh) Print Language: AMERICAN Results - Lab Results Lab Results: 09/09/18 09/09/18 13:20 13:20 WBC 7.8 RBC 4.79 Hgb 14.3 Hct 42.5 MCV 88.7 MCH 29.9 MCHC 33.8 RDW 13.5 Plt Count 213 MPV 8.7 Neut % (Auto) 66.5 Lymph % (Auto) 22.9 Hidalgo % (Auto) 8.3 Eos % (Auto) 1.5 Baso % (Auto) 0.8 Neut # (Auto) 5.2 Lymph # (Auto) 1.8 [place]idalgo # (Auto) 0.6 Eos # (Auto) 0.1 Baso # (Auto) 0.1 Sodium 141 Potassium 4.1 Chloride 105 Carbon Dioxide 25 Anion Gap 15 BUN 12 Creatinine 0.7 L Est GFR ( Amer) > 60 Est GFR (Non-Af Amer) > 60 Random Glucose 99 Calcium 10.0 Total Bilirubin 0.6 AST 33 ALT 39 Alkaline Phosphatase 130 H D Total Protein 8.4 H Albumin 4.8 Globulin 3.6 Albumin/Globulin Ratio 1.3 Lipase 90
[2018-09-09 13:33] LABS: BASO # 0.1 K/uL (0.0-0.2); BASO % 0.8 % (0.0-2.0); EOS # 0.1 K/uL (0.0-0.7); EOS % 1.5 % (0.0-4.0); HEMOGLOBIN 14.3 g/dL (12.0-18.0); LYMPH # 1.8 K/uL (1.0-4.3); LYMPH % 22.9 % (20.0-40.0); MEAN CELL VOLUME 88.7 fl (80.0-94.0); MEAN CORPUSCULAR HEMOGLOBIN 29.9 pg (27.0-31.0); MEAN CORPUSCULAR HGB CONC 33.8 g/dL (33.0-37.0); MEAN PLATELET VOLUME 8.7 fl (7.2-11.7); MONO # 0.6 K/uL (0.0-0.8); MONO % 8.3 % (0.0-10.0); NEUT # 5.2 K/uL (1.8-7.0); NEUT % 66.5 % (50.0-75.0); RBC 4.79 Mil/uL (4.40-5.90); RED CELL DISTRIBUTION WIDTH 13.5 % (11.5-14.5); WHITE BLOOD COUNT 7.8 K/uL (4.8-10.8)
[2018-09-09 13:43] LABS: ALB/GLOB RATIO 1.3 (1.0-2.1); ALBUMIN 4.8 g/dL (3.5-5.0); ALT/SGPT 39 U/L (21-72); AST/SGOT 33 U/L (17-59); BLOOD UREA NITROGEN 12 mg/dl (9-20); GFR NON-AFRICAN AMERICAN > 60; LIPASE 90 U/L (23-300)
[2018-09-09 14:27] VITALS: BP 110/70; PULSE 70; RESP 20; TEMP 97
[2018-09-09 14:30] VITALS: O2SAT 99
== END 2018-09-09 14:28 | disposition home or self-care (01) ==
LOC: H.ER 11:58
DX: R10.9 Unspecified abdominal pain (principal)

== ENCOUNTER 2018-10-06 12:20 | Emergency (ER) | payer SELFPAY ==
[2018-10-06 12:37] VITALS: BP 105/61; PULSE 73; RESP 16; TEMP 97.4; O2SAT 98
--- NOTE | 2018-10-06 13:37 | RAD ---
Date of service: 10/06/2018 PROCEDURE: Left Wrist Radiographs. HISTORY: injury with pain to left wrist COMPARISON: None. FINDINGS: BONES: Normal. No fracture. JOINTS: Normal. No dislocation. SOFT TISSUES: Normal. OTHER FINDINGS: None. IMPRESSION: Normal left wrist radiographs.
--- NOTE | 2018-10-06 14:16 | ED PDOC ---
Upper Extremity Pain/Injury Time Seen by Provider: 10/06/18 12:56 Chief Complaint (Nursing): Finger,Hand,&Wrist Chief Complaint (Provider): Finger,Hand,&Wrist History/Exam Limitations: no limitations Onset/Duration Of Symptoms: Days (x1 week) Current Symptoms Are (Timing): Still Present Additional Complaint(s): Cesar Peraza is a 23 year old male with no past medical history who presents to the emergency department complaining of left wrist pain, onset x1 week. Patient states he was at work lifting a palette with his hand down when he felt a crack and pain and swelling. He took some ibuprofen that day and felt some relief, but continued to have pain over the past week that slightly improved yesterday. Patient attempted to lift a box with his left hand face up and again felt a crack with some pain. He then decided to come to the ED for further evaluation because his pain is persistent. Patient denies any history of asthma or HTN. He has not taken any medication today. Further denies numbness or tingling in hand, denies elbow pain. PMD: No provider Past Medical History Reviewed: Historical Data, Nursing Documentation, Vital Signs Vital Signs: Last Vital Signs Temp 97.4 F L 10/06/18 12:33 Pulse 73 10/06/18 12:33 Resp 16 10/06/18 12:33 BP 105/61 10/06/18 12:33 Pulse Ox 98 10/06/18 12:33 - Medical History PMH: Denies: Asthma, HTN, Chronic Kidney Disease - Surgical History Surgical History: Appendectomy - Family History Family History: States: Unknown Family Hx - Immunization History Hx Tetanus Toxoid Vaccination: No Hx Influenza Vaccination: No Hx Pneumococcal Vaccination: No - Home Medications Home Medications: Ambulatory Orders Medication Instructions Recorded Ciprofloxacin [Cipro] 500 mg PO BID #14 tab 10/14/17 metroNIDAZOLE [Flagyl] 500 mg PO TID #21 tab 10/14/17 Oxycodone HCl/Acetaminophen 1 tab PO Q6 PRN 10/18/17 [Oxycodone-Acetaminophen 5-325] Bismuth Subsalicylate [Pepto 262 mg PO Q4H PRN #30 ctb 05/22/18 Bismol] Famotidine [Pepcid] 20 mg PO BID #60 tab 05/22/18 Dicyclomine [Bentyl] 10 mg PO QID PRN #20 cap 09/09/18 Ibuprofen [Motrin Tab] 600 mg PO Q6H PRN 5 Days tab 10/06/18 - Allergies Allergies/Adverse Reactions: Allergies Allergy/AdvReac Type Severity Reaction Status Date / Time No Known Allergies Allergy Verified 10/06/18 12:33 Review of Systems ROS Statement: Except As Marked, All Systems Reviewed And Found Negative Musculoskeletal: Positive for: Other (left hand and wrist pain and swelling) Physical Exam - Reviewed Nursing Documentation Reviewed: Yes Vital Signs Reviewed: Yes - Physical Exam Appears: Positive for: Uncomfortable Head Exam: Positive for: ATRAUMATIC, NORMOCEPHALIC Cardiovascular/Chest: Positive for: Regular Rate, Rhythm. Negative for: Murmur Respiratory: Positive for: Normal Breath Sounds. Negative for: Respiratory Distress Pulses-Radial (L): 2+ Pulses-Radial (R): 2+ Extremity: Positive for: Capillary Refill (less than 3 seconds), Swelling (Left wrist: mild edema (-) erythema or ecchymosis), Other (mild pain with flexion and extension of the wrist; normal flexion and extension of the fingers; normal flexion and extension of the elbow) Neurologic/Psych: Positive for: Other (sensation intact and bilaterally of upper extremities ) - ECG O2 Sat by Pulse Oximetry: 98 (RA) Pulse Ox Interpretation: Normal Medical Decision Making Medical Decision Making: Initial Time: 13:04 Initial Plan: --Left wrist x-ray --motrin 600 mg PO 13:33 Wrist X-ray FINDINGS: BONES: Normal. No fracture. JOINTS: Normal. No dislocation. SOFT TISSUES: Normal. OTHER FINDINGS: None. IMPRESSION: Normal left wrist radiographs. Scribe Attestation: Documented by Catalino Conway, acting as a scribe for Tashia Jackson PA-C. Provider Scribe Attestation: All medical record entries made by the Scribe were at my direction and personally dictated by me. I have reviewed the chart and agree that the record accurately reflects my personal performance of the history, physical exam, medical decision making, and the department course for this patient. I have also personally directed, reviewed, and agree with the discharge instructions and disposition. Disposition - Clinical Impression Clinical Impression: Wrist pain, left - Disposition Referrals: [facility] [Outside] [facility] [place] [Outside] Disposition Time: 13:55 Condition: STABLE Additional Instructions: Use Ibuprofen for pain and keep wrist splint on to reduce swelling. Rest Left hand as much as possible for the next few days. F/u with an orthopedist for further evaluation of wrist pain. Prescriptions: Ibuprofen [Motrin Tab] 600 mg PO Q6H PRN 5 Days tab PRN Reason: Pain, Moderate (4-7) Forms: [facility] (South Sudanese), [facility] ED School/Work Excuse Print Language: MOLDOVAN
== END 2018-10-06 15:10 | disposition home or self-care (01) ==
LOC: H.ER 12:20
DX: M25.532 Pain in left wrist (principal); X50.9XXA Other and unspecified overexertion or strenuous movements or postures, initial encounter; Y99.0 Civilian activity done for income or pay

== ENCOUNTER 2018-12-31 12:30 | Emergency (ER) | payer OTHER, SELFPAY ==
[2018-12-31 12:36] VITALS: TEMP 97.5
--- NOTE | 2018-12-31 13:27 | ED PDOC ---
HPI: Male Pain Time Seen by Provider: 12/31/18 12:43 Chief Complaint (Nursing): Male Genitourinary Chief Complaint (Provider): Testicular Mass History Per: Patient, Optimization Engineer (Welsh, #[id number]) History/Exam Limitations: no limitations Onset/Duration Of Symptoms: Intermittent Episodes (a couple days), Worse Since (last night) Current Symptoms Are (Timing): Still Present Additional Complaint(s): 23 year old male presents to the ED for evaluation of intermittent right testicular pain for the past couple days, worsening last night when he noticed a mass in the shower, which moved when he touched it. He is additionally reporting nausea associated with 2-3 episodes of vomiting within the past week. Otherwise, denies abdominal pain, trauma, and other complaints. PMD: none provided Past Medical History Reviewed: Historical Data, Nursing Documentation, Vital Signs Vital Signs: Last Vital Signs Temp 97.5 F L 12/31/18 12:33 Pulse 78 12/31/18 12:33 Resp 18 12/31/18 12:33 BP 116/53 L 12/31/18 12:33 Pulse Ox 99 12/31/18 12:33 - Medical History PMH: No Chronic Diseases Denies: Asthma, HTN, Chronic Kidney Disease - Surgical History Surgical History: Appendectomy - Family History Family History: States: Unknown Family Hx - Social History Current smoker - smoking cessation education provided: No Alcohol: None Drugs: Denies - Immunization History Hx Tetanus Toxoid Vaccination: No Hx Influenza Vaccination: No Hx Pneumococcal Vaccination: No - Home Medications Home Medications: Ambulatory Orders Medication Instructions Recorded Ciprofloxacin [Cipro] 500 mg PO BID #14 tab 10/14/17 metroNIDAZOLE [Flagyl] 500 mg PO TID #21 tab 10/14/17 Oxycodone HCl/Acetaminophen 1 tab PO Q6 PRN 10/18/17 [Oxycodone-Acetaminophen 5-325] Bismuth Subsalicylate [Pepto 262 mg PO Q4H PRN #30 ctb 05/22/18 Bismol] Famotidine [Pepcid] 20 mg PO BID #60 tab 05/22/18 Dicyclomine [Bentyl] 10 mg PO QID PRN #20 cap 09/09/18 Ibuprofen [Motrin Tab] 600 mg PO Q6H PRN 5 Days tab 10/06/18 - Allergies Allergies/Adverse Reactions: Allergies Allergy/AdvReac Type Severity Reaction Status Date / Time No Known Allergies Allergy Verified 10/06/18 12:33 Review of Systems ROS Statement: Except As Marked, All Systems Reviewed And Found Negative Gastrointestinal: Positive for: Nausea, Vomiting (2-3 episodes). Negative for: Abdominal Pain Genitourinary Male: Positive for: Other (right testicular pain with a movable mass) Physical Exam - Reviewed Nursing Documentation Reviewed: Yes Vital Signs Reviewed: Yes - Physical Exam Appears: Positive for: No Acute Distress Eye Exam: Positive for: Normal appearance ENT: Positive for: Normal ENT Inspection. Negative for: Pharyngeal Erythema, Tonsillar Exudate, Tonsillar Swelling Neck: Positive for: Normal, Painless ROM, Supple Cardiovascular/Chest: Positive for: Regular Rate, Rhythm Respiratory: Positive for: Normal Breath Sounds. Negative for: Respiratory Dist ress Gastrointestinal/Abdominal: Positive for: Normal Exam, Soft. Negative for: Tenderness Male Genital Exam: Positive for: other (right testicle: soft, non-tender, with no mass/cyst/lesions noted) Neurologic/Psych: Positive for: Alert, Oriented (x3). Negative for: Motor/Sensory Deficits - ECG O2 Sat by Pulse Oximetry: 99 (RA) Pulse Ox Interpretation: Normal Medical Decision Making Medical Decision Making: Time: 1304 Initial Impression: testicular pain Initial Plan: --Testicular US 1433 US FINDINGS: RIGHT TESTICLE: Measures 4.5 x 3.0 x 1.7 cm. Homogeneous echotexture. No mass. Normal flow demonstrated. RIGHT EPIDIDYMIS: Normal size, morphology and vascularity. No mass. LEFT TESTICLE: Measures 4.7 x 3.0 x 2.1 cm. Homogeneous echotexture. No mass. Normal flow demonstrated. LEFT EPIDIDYMIS: Normal size, morphology and vascularity.No mass. HYDROCELE: None. VARICOCELE: None. OTHER FINDINGS: None. IMPRESSION: Unremarkable examination. 1942 Discussed negative US results with patient using smooth plater number [id number]. All questions answered at this time. Urinalysis ordered to r/o urinary causes. Scribe Attestation: Documented by Donna Conroy, acting as a scribe for Noel Wheeler PA-C. Provider Scribe Attestation: All medical record entries made by the Scribe were at my direction and personally dictated by me. I have reviewed the chart and agree that the record accurately reflects my personal performance of the history, physical exam, medical decision making, and the department course for this patient. I have also personally directed, reviewed, and agree with the discharge instructions and disposition. Disposition - Clinical Impression Clinical Impression: Testicular pain, right - Patient ED Disposition Is Patient to be Admitted: No Counseled Patient/Family Regarding: Diagnosis, Need For Followup, Rx Given - Disposition Disposition: Routine/Home Disposition Time: 17:12 Condition: STABLE Instructions: How to Perform a Testicular Self-Exam Forms: [employer] (Setswana), [employer] (Welsh) Print Language: ROMANIAN
--- NOTE | 2018-12-31 14:37 | US ---
Date of service: 12/31/2018 HISTORY: testicular pain (R) TECHNIQUE: Realtime sonography through the scrotum with color and doppler flow. COMPARISON: None Available. FINDINGS: RIGHT TESTICLE: Measures 4.5 x 3.0 x 1.7 cm. Homogeneous echotexture. No mass. Normal flow demonstrated. RIGHT EPIDIDYMIS: Normal size, morphology and vascularity. No mass. LEFT TESTICLE: Measures 4.7 x 3.0 x 2.1 cm. Homogeneous echotexture. No mass. Normal flow demonstrated. LEFT EPIDIDYMIS: Normal size, morphology and vascularity.No mass. HYDROCELE: None. VARICOCELE: None. OTHER FINDINGS: None. IMPRESSION: Unremarkable examination.
[2018-12-31 17:17] VITALS: BP 110/60; PULSE 60; RESP 20; O2SAT 100
[2018-12-31 17:17] LABS: URINE BACTERIA RARE (<OCC); URINE BILIRUBIN NEGATIVE (NEGATIVE); URINE BLOOD NEGATIVE (NEGATIVE); URINE CLARITY SLIGHTY-CLOUDY (Clear); URINE COLOR YELLOW (YELLOW); URINE GLUCOSE (UA) NEG (NEGATIVE); URINE LEUKOCYTE ESTERASE NEG Leu/uL (Negative); URINE PROTEIN NEGATIVE (NEGATIVE); URINE UROBILINOGEN 0.2-1.0 mg/dL (0.2-1.0)
== END 2018-12-31 17:15 | disposition home or self-care (01) ==
LOC: H.ER 12:30
DX: N50.811 Right testicular pain (principal)